=== PATIENT | female | born 1995 | race Caucasian/White ===

== ENCOUNTER 2016-10-14 21:03 | Emergency (ER) | payer OTHER ==
[2016-10-14 21:51] VITALS: BP 121/59
[2016-10-14] MEDS ORDERED: MOTRIN PO ONE (23:54)
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
== END 2016-10-15 00:15 | disposition home or self-care (01) ==
LOC: ED 21:03
DX: S16.1XXA Strain of muscle, fascia and tendon at neck level, initial encounter (principal); J45.909 Unspecified asthma, uncomplicated; Z91.040 Latex allergy status; Z91.011 Allergy to milk products; V49.9XXA Car occupant (driver) (passenger) injured in unspecified traffic accident, initial encounter; Y92.413 State road as the place of occurrence of the external cause; Y93.89 Activity, other specified; Y99.8 Other external cause status
CPT/HCPCS: 99282

== ENCOUNTER 2017-01-02 16:22 | Emergency (ER) | payer SELFPAY ==
[2017-01-02 20:01] LABS: Bilirubin,Urine NEG (Negative); Blood,Urine NEG (Negative); Ketones,Urine NEG (Negative); Leukocyte Esterase,Urine SM (Negative); Mucus,Urine 2+ /HPF; Nitrite,Urine NEG (Negative); Protein,Urine <15 mg/dL mg/dL (Negative); Urobilinogen,Urine < 2.0 mg/dL (<2.0)
--- NOTE | 2017-01-02 21:32 | Emergency Department Report ---
Entered by DEVANG GUSMAN, acting as scribe for RAHUL MONCADA PA. ED Female HPI - General Chief complaint: Urogenital-Female Stated complaint: UTI Time Seen by Provider: 01/02/17 19:38 Source: patient Mode of arrival: Ambulatory Limitations: No Limitations - History of Present Illness Initial comments: 21 y/o female a PMHx of childhood asthma presents to the ED c/o a possible urinary tract infection for 2 days. Patient states she took an OTC urinalysis test that showed positive results for a UTI. Associated left flank pain and dysuria, but she denies abdominal pain, vaginal discharge, vaginal bleeding, fever, chills, nausea, and vomiting. Rates left flank pain a 5/10 in severity which is intermittent in nature, aching, worsened with certain movement. Notes having regular periods. Reports Hx of similar symptoms as a child. LMP 2016. [facility]. [place] Complaint: dysuria Onset/Timin -: days(s) Radiation: non-radiating Severity: moderate (left flank pain) Severity scale (0 -10): 5 (left flank pain) Quality: aching (left flank pain) Consistency: constant Improves with: none Worsens with: none Are you Now?: No Last Menstrual Period: 12/29/16 EDC: 10/05/17 Associated Symptoms: denies other symptoms, dysuria, other (left flank pain). denies: vaginal discharge, vaginal bleeding, abdominal pain, fever/chills, rash , shortness of breath, weakness - Related Data Previous Rx's Medication Instructions Recorded Last Taken Type Acetaminophen/Codeine [Tylenol #3] 1 tab PO Q6H PRN #12 tab 10/15/16 Unknown Rx methOCARBAMOL [Robaxin TAB] 500 mg PO Q6H PRN #15 tablet 10/15/16 Unknown Rx Ibuprofen [Motrin 600 MG tab] 600 mg PO Q8H PRN #30 tablet 01/02/17 Unknown Rx Phenazopyridine [Pyridium] 200 mg PO BID #6 tab 01/02/17 Unknown Rx Allergies Allergy/AdvReac Type Severity Reaction Status Date / Time latex Allergy Rash Verified 10/14/16 21:51 milk Allergy Unknown Verified 10/14/16 21:51 ED Review of Systems Comment: All other systems reviewed and negative Constitutional: no symptoms reported. denies: chills, fever Respiratory: denies: cough, shortness of breath, wheezing Cardiovascular: denies: chest pain, palpitations Endocrine: no symptoms reported Gastrointestinal: denies: abdominal pain, nausea, vomiting, diarrhea Genitourinary: dysuria. denies: urgency, frequency, hematuria, discharge, other (vaginal bleeding) Musculoskeletal: back pain (left flank pain). denies: joint swelling, arthralgia Skin: denies: rash, lesions ED Past Medical Hx - Past Medical History Previous Medical History?: Yes Hx Asthma: Yes (as child) - Surgical History Additional Surgical History: x1 - Social History Smoking Status: Current Every Day Smoker Substance Use Type: Alcohol - Medications Home Medications: Home Medications Medication Instructions Recorded Confirmed Last Taken Type Acetaminophen/Codeine [Tylenol #3] 1 tab PO Q6H PRN #12 tab 10/15/16 Unknown Rx methOCARBAMOL [Robaxin TAB] 500 mg PO Q6H PRN #15 tablet 10/15/16 Unknown Rx Ibuprofen [Motrin 600 MG tab] 600 mg PO Q8H PRN #30 tablet 01/02/17 Unknown Rx Phenazopyridine [Pyridium] 200 mg PO BID #6 tab 01/02/17 Unknown Rx ED Physical Exam - General Limitations: No Limitations General appearance: alert, in no apparent distress - Head Head exam: Present: atraumatic, normocephalic - Eye Eye exam: Present: normal appearance, PERRL, EOMI Pupils: Present: normal accommodation - ENT ENT exam: Present: normal exam, mucous membranes moist - Neck Neck exam: Present: normal inspection, full ROM. Absent: tenderness, lymphadenopathy - Respiratory Respiratory exam: Present: normal lung sounds bilaterally. Absent: respiratory distress, wheezes, rales, rhonchi, stridor - Cardiovascular Cardiovascular Exam: Present: regular rate, normal rhythm, normal heart sounds. Absent: systolic murmur, diastolic murmur, rubs, gallop - GI/Abdominal GI/Abdominal exam: Present: soft, normal bowel sounds. Absent: distended, tenderness, guarding, rebound, rigid - Extremities Exam Extremities exam: Present: normal inspection, full ROM. Absent: calf tenderness - Back Exam Back exam: Present: full ROM, CVA tenderness (L). Absent: CVA tenderness (R), paraspinal tenderness, vertebral tenderness - Neurological Exam Neurological exam: Present: alert, oriented X3, CN II-XII intact - Psychiatric Psychiatric exam: Present: normal affect, normal mood - Skin Skin exam: Present: warm, dry, intact. Absent: rash ED Course Vital Signs 01/02/17 16:38 Temperature 98.5 F Pulse Rate 98 H Respiratory 18 Rate Blood Pressure 135/85 O2 Sat by Pulse 100 Oximetry ED Medical Decision Making - Medical Decision Making 21-year-old female presents with dysuria ED course: UA, UPT ordered. Urinalysis negative. Discussed findings with patient. Discussed with patient for pain Patient is not ill-appearing. Discussed the patient for her pain could be myalgia strained the muscle. Discuss to take Motrin as needed for pain. 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 Discuss her symptoms return or worsen to return to the ED Patient states understanding and will follow instructions. Vital signs stable. Patient is in no acute distress. ED Disposition Clinical Impression: Dysuria Disposition: DC-01 TO HOME OR SELFCARE Is pt being admited?: No Does the pt Need Aspirin: No Condition: Stable Instructions: Dysuria (ED) Prescriptions: Ibuprofen [Motrin 600 MG tab] 600 mg PO Q8H PRN #30 tablet PRN Reason: Pain Phenazopyridine [Pyridium] 200 mg PO BID #6 tab Referrals: PRIMARY CARE,MD [Primary Care Provider] - 3-[address] [facility] [Outside] - 3-5 Days Forms: Accompanied Note, Work/School Release Form(ED) Time of Disposition: 20:29 This documentation as recorded by the UZMA hairston JASMINE,accurately reflects the service I personally performed and the decisions made by ANTWAN stallings OYINLOLA A, PA.
[2017-01-03 01:50] VITALS: BP 124/77
== END 2017-01-02 20:50 | disposition home or self-care (01) ==
LOC: ED 16:22
DX: R30.0 Dysuria (principal); R10.9 Unspecified abdominal pain; J45.909 Unspecified asthma, uncomplicated; F17.200 Nicotine dependence, unspecified, uncomplicated; Z91.040 Latex allergy status; Z91.011 Allergy to milk products
CPT/HCPCS: 81001; 81025; 99283

== ENCOUNTER 2018-03-14 21:40 | Emergency (ER) | payer OTHER ==
[2018-03-14] MEDS ORDERED: NACL 0.9% 1000 ML 1,000 ML IV ONE (22:07)
[2018-03-14 22:30] LABS: Basophils % (Auto) 0.5 % (0.0-1.8); Eosinophils # (Auto) 0.1 K/mm3 (0.0-0.4); Eosinophils % (Auto) 1.6 % (0.0-4.3); Hematocrit 38.4 % (30.3-42.9); Hemoglobin 13.1 gm/dl (10.1-14.3); Lymphocytes # (Auto) 2.6 K/mm3 (1.2-5.4); Lymphocytes % (Auto) 30.2 % (13.4-35.0); Mean Corpuscular HGB Conc 34 % (30-34); Mean Corpuscular Hemoglobin 32 pg (28-32); Mean Corpuscular Volume 92 fl (79-97); Monocytes # (Auto) 0.7 K/mm3 (0.0-0.8); Monocytes % (Auto) 8.2 % (0.0-7.3); Platelet Count 307 K/mm3 (140-440); Red Blood Count 4.15 M/mm3 (3.65-5.03); Red Cell Distribution Width 13.7 % (13.2-15.2)
[2018-03-14 22:40] LABS: Alanine Aminotransferase 13 units/L (7-56); Albumin 4.5 g/dL (3.9-5); BUN/Creatinine Ratio 10; Blood Urea Nitrogen 7 mg/dL (7-17); Calcium 9.7 mg/dL (8.4-10.2); Hemolysis Index 11; Lipase 27 units/L (13-60)
[2018-03-14 23:02] LABS: HCG Qualitative,Urine Positive (Negative)
[2018-03-14 23:08] LABS: Bilirubin,Urine NEG (Negative); Blood,Urine NEG (Negative); Color,Urine Yellow (Yellow); Mucus,Urine FEW /HPF; Protein,Urine <15 mg/dL mg/dL (Negative); Urobilinogen,Urine < 2.0 mg/dL (<2.0)
--- NOTE | 2018-03-15 01:45 | Emergency Department Report ---
HPI - General Chief Complaint: Abdominal Pain Time Seen by Provider: 03/15/18 01:25 - HPI HPI: Room 3 The patient is a 22-year-old female presenting with a chief complaint of right pelvic pain. The patient states for the past 3 days she's had intermittent sharp grabbing pain along the right pelvis and right abdomen. Patient admits to nausea and vomiting as well as subjective fever. The patient states her last cycle occurred 02/02/2018 and being laid is abnormal for her. Patient denies dysuria, hematuria or vaginal bleeding. Location: [See above] Duration: Intermittent 3 days Quality: Sharp/grabbing Severity: Moderate Modifying factors: [see above] Context: [see above] Mode of transportation: [not driving] ED Past Medical Hx - Past Medical History Hx Asthma: Yes (as child) - Surgical History Additional Surgical History: x1 - Family History Family history: no significant - Social History Smoking Status: Never Smoker Substance Use Type: None (denies illicit drug use) - Medications Home Medications: Home Medications Medication Instructions Recorded Confirmed Last Taken Type Acetaminophen/Codeine [Tylenol #3] 1 tab PO Q6H PRN #12 tab 10/15/16 Unknown Rx methOCARBAMOL [Robaxin TAB] 500 mg PO Q6H PRN #15 tablet 10/15/16 Unknown Rx Ibuprofen [Motrin 600 MG tab] 600 mg PO Q8H PRN #30 tablet 01/02/17 Unknown Rx Phenazopyridine [Pyridium] 200 mg PO BID #6 tab 01/02/17 Unknown Rx Ibuprofen [Motrin 600 MG tab] 600 mg PO Q8H PRN #20 tablet 03/15/18 Unknown Rx ED Review of Systems ROS: Stated complaint: LT FLANK PAIN; FEVER; N/V Other details as noted in HPI Constitutional: fever (subjective) Eyes: denies: eye pain ENT: denies: throat pain Respiratory: no symptoms reported Cardiovascular: denies: chest pain Endocrine: no symptoms reported Gastrointestinal: nausea, vomiting Genitourinary: abnormal menses, other (right pelvic pain). denies: dysuria, hematuria Musculoskeletal: denies: back pain Neurological: denies: headache Physical Exam - Physical Exam Vital Signs: Vital Signs 03/14/18 03/15/18 03/15/18 22:03 00:58 00:59 Temperature 98.3 F Pulse Rate 75 86 Respiratory 18 16 16 Rate Blood Pressure 148/76 Blood Pressure 107/59 [Left] O2 Sat by Pulse 100 Oximetry Physical Exam: GENERAL: The patient is well-developed well-nourished female lying O she could not appear to be in acute distress. [] HEENT: Normocephalic. Atraumatic. Extraocular motions are intact. Patient has moist mucous membranes. NECK: Supple. Trachea midline CHEST/LUNGS: Clear to auscultation. There is no respiratory distress noted. HEART/CARDIOVASCULAR: Regular. There is no tachycardia. There is no gallop rub or murmur. ABDOMEN: Abdomen is soft, with mild discomfort to palpation along the right inguinal region. Patient has normal bowel sounds. There is no abdominal distention. SKIN: There is no rash. There is no edema. There is no diaphoresis. NEURO: The patient is awake, alert, and oriented. The patient is cooperative. The patient has normal speech MUSCULOSKELETAL: There is no CVA tenderness. There is no evidence of acute injury. ED Course Vital Signs 03/14/18 03/15/18 03/15/18 22:03 00:58 00:59 Temperature 98.3 F Pulse Rate 75 86 Respiratory 18 16 16 Rate Blood Pressure 148/76 Blood Pressure 107/59 [Left] O2 Sat by Pulse 100 Oximetry ED Medical Decision Making - Lab Data Result diagrams: 03/14/18 22:12 03/14/18 22:12 - Radiology Data Radiology results: report reviewed (pelvic ultrasound, right renal ultrasound), image reviewed (pelvic ultrasound, right renal ultrasound) [facility] [address] [place] [address] Ultrasound Report Signed Patient: CHILANGO MILNER MR#: [id number] : 1995 Acct:[id number] Age/Sex: 22 / F ADM Date: 03/14/18 Loc: ED Attending Dr: Ordering Physician: GAYATRI ASHER MD Date of Service: 03/15/18 Procedure(s): US OB transvaginal Accession Number(s): [id number] cc: GAYATRI ASHER MD FINAL REPORT EXAM: US OB TRANSVAGINAL HISTORY: right pelvic pain TECHNIQUE: Real-time sonography was performed of the gravid uterus transabdominally and endovaginally and images are submitted for interpretation. PRIORS: None. FINDINGS: The uterus appears normal and has a grossly normal appearing gestational sac. There is a small subchorionic bleed. There is a normal appearing pole measuring 0.66 centimeters for an estimated gestational age of 6 weeks 4 days. A normal-appearing yolk sac is identified. The heart is beating at a rate of 129 beats per minute. Both ovaries are visualized and appear normal. The right ovary measures 3.1 x 2.1 x 2.3 cm and the left measures 2.3 x 1.5 x 1.4 cm. IMPRESSION: Single live intrauterine gestation, estimated gestational age 6 weeks 4 days for an estimated confinement of 2018. Small subchorionic bleed. Transcribed By: KIMBERLY Dictated By: DEWEY CAMPOS MD Electronically Authenticated By: DEWEY CAMPOS MD Signed Date/Time: 337 DD/ 7 TD/TT: 03/15/18337 [facility] [address] [place] [address] Ultrasound Report Signed Patient: CHILANGO MILNER MR#: [id number] : 1995 Acct:[id number] Age/Sex: 22 / F ADM Date: 03/14/18 Loc: ED Attending Dr: Ordering Physician: GAYATRI ASHER MD Date of Service: 03/15/18 Procedure(s): US renal RT Accession Number(s): [id number] cc: GAYATRI ASHER MD FINAL REPORT EXAM: US RENAL RT HISTORY: right flank pain TECHNIQUE: Real-time sonography was performed of the right kidney and images are submitted for interpretation. PRIORS: None. FINDINGS: The right kidney appears normal in size , shape and echogenicity measuring 10.9 x 3.2 x 5.9 cm. There is no hydronephrosis. There are no focal renal lesions. IMPRESSION: Normal right renal ultrasound Transcribed By: KIMBERLY Dictated By: DEWEY CAMPOS MD Electronically Authenticated By: DEWEY CAMPOS MD Signed Date/Time: 03/15/18328 DD/ 8 TD/TT: 03/15/18328 - Differential Diagnosis ectopic , UTI, renal colic Critical care attestation.: If time is entered above; I have spent that time in minutes in the direct care of this critically ill patient, excluding procedure time. ED Disposition Clinical Impression: , Abdominal pain Disposition: - TO HOME OR SELFCARE Is pt being admited?: No Does the pt Need Aspirin: No Condition: Stable Instructions: Abdominal Pain (ED) Additional Instructions: Return to the emergency department immediately should you develop worsening symptoms, fever, inability to tolerate food or liquid or any other concerns. Prescriptions: Ibuprofen [Motrin 600 MG tab] 600 mg PO Q8H PRN #20 tablet PRN Reason: Pain Referrals: PRIMARY CARE, [Primary Care Provider] - 3-5 Days ARMEN RIOJAS MD [Staff Physician] - 3-5 Days (Dr. Riojas is an [employer]. Please follow up with her for further evaluation) Time of Disposition: 04:25
--- NOTE | 2018-03-15 03:29 | Ultrasound Report ---
FINAL REPORT EXAM: US RENAL RT HISTORY: right flank pain TECHNIQUE: Real-time sonography was performed of the right kidney and images are submitted for interpretation. PRIORS: None. FINDINGS: The right kidney appears normal in size, shape and echogenicity measuring 10.9 x 3.2 x 5.9 cm. There is no hydronephrosis. There are no focal renal lesions. IMPRESSION: Normal right renal ultrasound
--- NOTE | 2018-03-15 03:36 | Ultrasound Report ---
FINAL REPORT EXAM: US OB < = 14 WEEKS FETUS HISTORY: right pelvic pain TECHNIQUE: Real-time sonography was performed of the gravid uterus transabdominally and endovaginally and images are submitted for interpretation. PRIORS: None. FINDINGS: The uterus appears normal and has a grossly normal appearing gestational sac. There is a normal appearing pole measuring 0.66 centimeters for an estimated gestational age of 6 weeks 4 days. A normal-appearing yolk sac is identified. The heart is beating at a rate of 129 beats per minute. Both ovaries are visualized and appear normal. The right ovary measures 3.1 x 2.1 x 2.3 cm and the left measures 2 is.3 x 1.5 x 1.4 cm. IMPRESSION: Single live intrauterine gestation, estimated gestational age 6 weeks 4 days for an estimated confinement of 11/03/2018.
--- NOTE | 2018-03-15 03:40 | Ultrasound Report ---
FINAL REPORT EXAM: US OB TRANSVAGINAL HISTORY: right pelvic pain TECHNIQUE: Real-time sonography was performed of the gravid uterus transabdominally and endovaginally and images are submitted for interpretation. PRIORS: None. FINDINGS: The uterus appears normal and has a grossly normal appearing gestational sac. There is a small subchorionic bleed. There is a normal appearing pole measuring 0.66 centimeters for an estimated gestational age of 6 weeks 4 days. A normal-appearing yolk sac is identified. The heart is beating at a rate of 129 beats per minute. Both ovaries are visualized and appear normal. The right ovary measures 3.1 x 2.1 x 2.3 cm and the left measures 2.3 x 1.5 x 1.4 cm. IMPRESSION: Single live intrauterine gestation, estimated gestational age 6 weeks 4 days for an estimated confinement of 11/03/2018. Small subchorionic bleed.
[2018-03-15 05:42] VITALS: BP 98/49
== END 2018-03-15 05:25 | disposition home or self-care (01) ==
LOC: ED 21:40
DX: O26.891 Other specified pregnancy related conditions, first trimester (principal); R10.2 Pelvic and perineal pain; O21.9 Vomiting of pregnancy, unspecified; O99.511 Diseases of the respiratory system complicating pregnancy, first trimester; J45.909 Unspecified asthma, uncomplicated; Z3A.01 Less than 8 weeks gestation of pregnancy; Z91.040 Latex allergy status; Z91.011 Allergy to milk products
CPT/HCPCS: 36415; 76775; 76801; 76817; 80053; 81001; 81025; 83690; 84702; 85025; 99284

== ENCOUNTER 2018-03-15 16:58 | Emergency (ER) | payer SELFPAY ==
[2018-03-15 18:18] LABS: Bilirubin,Urine NEG (Negative); Blood,Urine NEG (Negative); Color,Urine Yellow (Yellow); Mucus,Urine 3+ /HPF
[2018-03-15 18:54] LABS: Basophils % (Auto) 0.6 % (0.0-1.8); Eosinophils # (Auto) 0.1 K/mm3 (0.0-0.4); Eosinophils % (Auto) 1.2 % (0.0-4.3); Hematocrit 37.1 % (30.3-42.9); Lymphocytes # (Auto) 2.5 K/mm3 (1.2-5.4); Lymphocytes % (Auto) 32.5 % (13.4-35.0); Mean Corpuscular HGB Conc 35 % (30-34); Mean Corpuscular Hemoglobin 32 pg (28-32); Mean Corpuscular Volume 91 fl (79-97); Monocytes # (Auto) 0.6 K/mm3 (0.0-0.8); Monocytes % (Auto) 8.1 % (0.0-7.3); Platelet Count 310 K/mm3 (140-440); Red Blood Count 4.07 M/mm3 (3.65-5.03); Red Cell Distribution Width 13.8 % (13.2-15.2)
[2018-03-15 19:17] LABS: Alanine Aminotransferase 11 units/L (7-56); Albumin 4.4 g/dL (3.9-5); BUN/Creatinine Ratio 17; Blood Urea Nitrogen 10 mg/dL (7-17); Calcium 9.4 mg/dL (8.4-10.2); Hemolysis Index 0
[2018-03-15] MEDS ORDERED: ZOFRAN IV ONE (22:42)
[2018-03-15] MEDS ORDERED: D5NS 1,000 ML IV SCH (23:00)
--- NOTE | 2018-03-15 23:45 | Emergency Department Report ---
ED Female HPI - General Chief complaint: Abdominal Pain Stated complaint: FEVER Time Seen by Provider: 03/15/18 22:34 Source: patient, old records reviewed Mode of arrival: Ambulatory Limitations: No Limitations - History of Present Illness Initial comments: 22-year-old female with a past medical history of asthma as a child presents to the hospital complaining of abdominal pain and fever 3 days. Patient was seen here yesterday with symptoms diagnosed with . Patient states that she has had the pubic, right mid abdominal pain, having epigastric pain for the last 3 days with a fever of 102 at home. Yesterday patient had a right renal ultrasound is normal and a transvaginal ultrasound 6 week 4 day IUP with small subchorionic hemorrhage. Patient was discharged with prescriptions for Reglan and lotion but she states she could not afford the medication. Patient reports continued and vomiting with decreased by mouth tolerance with nausea. Patient denies diarrhea, vaginal bleeding, international travel, sick contacts, or dysuria. Vaginal discharge reported. This is her second and she has one living child and no history of miscarriages or abortions. She states she is Rh- - Related Data Previous Rx's Medication Instructions Recorded Last Taken Type Metoclopramide [Reglan] 10 mg PO TID PRN #20 tab 03/15/18 Unknown Rx Ondansetron [Zofran Odt] 4 mg PO Q8HR PRN #20 tab.rapdis 03/16/18 Unknown Rx Allergies Allergy/AdvReac Type Severity Reaction Status Date / Time latex Allergy Rash Verified 10/14/16 21:51 milk Allergy Unknown Verified 10/14/16 21:51 ED Review of Systems ROS: Stated complaint: FEVER Other details as noted in HPI Comment: All other systems reviewed and negative ED Past Medical Hx - Past Medical History Hx Asthma: Yes (as child) - Surgical History Past Surgical History?: Yes Additional Surgical History: x1 - Social History Smoking Status: Never Smoker Substance Use Type: None - Medications Home Medications: Home Medications Medication Instructions Recorded Confirmed Last Taken Type Metoclopramide [Reglan] 10 mg PO TID PRN #20 tab 03/15/18 Unknown Rx Ondansetron [Zofran Odt] 4 mg PO Q8HR PRN #20 tab.rapdis 03/16/18 Unknown Rx ED Physical Exam - General Limitations: No Limitations - Other Other exam information: General: No limitations, patient is alert in no acute distress Head exam: Atraumatic, normocephalic Eyes exam: Normal appearance ENT: Moist mucous membrane, normal oropharynx Neck exam: Normal inspection, full range of motion, no meningismus nontender Respiratory exam: Clear to auscultation bilateral, no wheezes, rales, crackles Cardiovascular: Normal rate and rhythm, normal heart sounds Abdomen: Soft, nondistended, suprapubic tenderness, with normal bowel sounds, no rebound, or guarding : White vaginal discharge, no CMT. Mild left adnexal tenderness Extremity: Full range of motion normal inspection no deformity Back: Normal Inspection, full range of motion, no tenderness no CVA tenderness Neurologic: Alert, oriented x3, cranial nerves intact, no motor or sensory deficit Psychiatric: normal affect, normal mood Skin: Warm, dry, intact ED Course Vital Signs 03/15/18 03/15/18 17:11 23:13 Temperature 98.7 F 98.6 F Pulse Rate 61 58 L Respiratory 18 16 Rate Blood Pressure 138/79 Blood Pressure 110/62 [Right] O2 Sat by Pulse 99 100 Oximetry ED Medical Decision Making - Lab Data Result diagrams: 03/15/18 18:31 03/15/18 18:31 Lab Results 03/15/18 03/15/18 03/15/18 Range/Units 17:24 18:31 18:31 WBC 7.8 (4.5-11.0) K/mm3 RBC 4.07 (3.65-5.03) M/mm3 Hgb 13.0 (10.1-14.3) gm/dl Hct 37.1 (30.3-42.9) % MCV 91 (79-97) fl MCH 32 (28-32) pg MCHC 35 H (30-34) % RDW 13.8 (13.2-15.2) % Plt Count 310 (140-440) K/mm3 Lymph % (Auto) 32.5 (13.4-35.0) % [place] % (Auto) 8.1 H (0.0-7.3) % Eos % (Auto) 1.2 (0.0-4.3) % Baso % (Auto) 0.6 (0.0-1.8) % Lymph # 2.5 (1.2-5.4) K/mm3 [place] # 0.6 (0.0-0.8) K/mm3 Eos # 0.1 (0.0-0.4) K/mm3 Baso # 0.0 (0.0-0.1) K/mm3 Seg Neutrophils % 57.6 (40.0-70.0) % Seg Neutrophils # 4.5 (1.8-7.7) K/mm3 Sodium 136 L (137-145) mmol/L Potassium 3.7 (3.6-5.0) mmol/L Chloride 98.6 (98-107) mmol/L Carbon Dioxide 22 (22-30) mmol/L Anion Gap 19 mmol/L BUN 10 (7-17) mg/dL Creatinine 0.6 L (0.7-1.2) mg/dL Estimated GFR > 60 ml/min BUN/Creatinine Ratio 17 % Glucose 101 H (65-100) mg/dL Calcium 9.4 (8.4-10.2) mg/dL Total Bilirubin 0.50 (0.1-1.2) mg/dL AST 14 (5-40) units/L ALT 11 (7-56) units/L Alkaline Phosphatase 45 (35-129) units/L Total Protein 7.2 (6.3-8.2) g/dL Albumin 4.4 (3.9-5) g/dL Albumin/Globulin Ratio 1.6 % Urine Color Yellow (Yellow) Urine Turbidity Slightly-cloudy (Clear) Urine pH 5.0 (5.0-7.0) Ur Specific [place] 1.028 (1.003-1.030) Urine Protein 30 mg/dl (Negative) mg/dL Urine Glucose (UA) Neg (Negative) mg/dL Urine Ketones 80 (Negative) mg/dL Urine Blood Neg (Negative) Urine Nitrite Neg (Negative) Urine Bilirubin Neg (Negative) Urine Urobilinogen 2.0 (<2.0) mg/dL Ur Leukocyte Esterase Neg (Negative) Urine WBC (Auto) 4.0 (0.0-6.0) /HPF Urine RBC (Auto) 4.0 (0.0-6.0) /HPF U Epithel Cells (Auto) 9.0 (0-13.0) /HPF Urine Mucus 3+ /HPF Blood Type Antibody Screen 03/15/18 Range/Units 23:52 WBC (4.5-11.0) K/mm3 RBC (3.65-5.03) M/mm3 Hgb (10.1-14.3) gm/dl Hct (30.3-42.9) % MCV (79-97) fl MCH (28-32) pg MCHC (30-34) % RDW (13.2-15.2) % Plt Count (140-440) K/mm3 Lymph % (Auto) (13.4-35.0) % [place] % (Auto) (0.0-7.3) % Eos % (Auto) (0.0-4.3) % Baso % (Auto) (0.0-1.8) % Lymph # (1.2-5.4) K/mm3 [place] # (0.0-0.8) K/mm3 Eos # (0.0-0.4) K/mm3 Baso # (0.0-0.1) K/mm3 Seg Neutrophils % (40.0-70.0) % Seg Neutrophils # (1.8-7.7) K/mm3 Sodium (137-145) mmol/L Potassium (3.6-5.0) mmol/L Chloride (98-107) mmol/L Carbon Dioxide (22-30) mmol/L Anion Gap mmol/L BUN (7-17) mg/dL Creatinine (0.7-1.2) mg/dL Estimated GFR ml/min BUN/Creatinine Ratio % Glucose (65-100) mg/dL Calcium (8.4-10.2) mg/dL Total Bilirubin (0.1-1.2) mg/dL AST (5-40) units/L ALT (7-56) units/L Alkaline Phosphatase (35-129) units/L Total Protein (6.3-8.2) g/dL Albumin (3.9-5) g/dL Albumin/Globulin Ratio % Urine Color (Yellow) Urine Turbidity (Clear) Urine pH (5.0-7.0) Ur Specific [place] (1.003-1.030) Urine Protein (Negative) mg/dL Urine Glucose (UA) (Negative) mg/dL Urine Ketones (Negative) mg/dL Urine Blood (Negative) Urine Nitrite (Negative) Urine Bilirubin (Negative) Urine Urobilinogen (<2.0) mg/dL Ur Leukocyte Esterase (Negative) Urine WBC (Auto) (0.0-6.0) /HPF Urine RBC (Auto) (0.0-6.0) /HPF U Epithel Cells (Auto) (0-13.0) /HPF Urine Mucus /HPF Blood Type O NEGATIVE Antibody Screen Negative - Medical Decision Making pelvic pain no consistent pain over the appendix, normal wbc count, normal temperature and no signs of infection. UA negative and patient had a right renal ultrasound if that was negative Positive IUP with subchorionic hemorrhage. Patient is Rh- and therefore RhoGAM provided Vaginal discharge secondary to BV. Flagyl given in the ED and will be continued and will be prescribed Zofran will be prescribed when necessary nausea. Patient instructed not to take motion but instead take Tylenol as needed for pain n/v in with urine ketones due to dehydration, improved after Zofran and patient received 1 L D5 NS and is tolerating PO intake Follow-up with MEDICAL OFFICE SPECIALIST will be encouraged - Differential Diagnosis appendicitis, UTI, cystitis, vaginitis, renal colic Critical Care Time: No Critical care attestation.: If time is entered above; I have spent that time in minutes in the direct care of this critically ill patient, excluding procedure time. ED Disposition Clinical Impression: BV (bacterial vaginosis), Pelvic pain, 6 weeks gestation of , Subchorionic hematoma in first trimester, Nausea and vomiting during Disposition: TO HOME OR SELFCARE Is pt being admited?: No Does the pt Need Aspirin: No Condition: Stable Instructions: Bacterial Vaginosis (ED), Abdominal Pain (ED), (ED), Hyperemesis Gravidarum (ED) Additional Instructions: Take the medication as prescribed. Follow up with your doctor or the doctor/ clinic provided. Return if symptoms worsen as indicated by your discharge instructions. Take Tylenol as needed for pain and do not take Motrin during her . 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
[2018-03-16] MEDS ORDERED: FLAGYL PO ONE (00:06)
[2018-03-16 03:39] VITALS: BP 101/57
== END 2018-03-16 04:25 | disposition home or self-care (01) ==
LOC: ED 16:58
DX: O23.591 Infection of other part of genital tract in pregnancy, first trimester (principal); B96.89 Other specified bacterial agents as the cause of diseases classified elsewhere; O20.8 Other hemorrhage in early pregnancy; O21.9 Vomiting of pregnancy, unspecified; O99.511 Diseases of the respiratory system complicating pregnancy, first trimester; J45.909 Unspecified asthma, uncomplicated; Z91.040 Latex allergy status; Z91.011 Allergy to milk products; Z3A.01 Less than 8 weeks gestation of pregnancy
CPT/HCPCS: 36415; 80053; 81001; 85025; 86850; 86900; 86901; 87210; 87591; 96361; 96374; 99284; J2405; J2790; J7042

== ENCOUNTER 2021-03-23 13:34 | Emergency (ER) | payer SELFPAY ==
[2021-03-23 13:56] VITALS: BP 149/97
--- NOTE | 2021-03-23 14:13 | Emergency Department Report ---
ED Female HPI - General Chief complaint: Vaginal Bleeding Stated complaint: HEAVY PERIOD,CLOTS,LO BACK PAIN PELVIC Time Seen by Provider: 03/23/21 14:03 Source: patient Mode of arrival: Ambulatory Limitations: No Limitations - History of Present Illness Initial comments: Patient is a 25-year-old female presents emergency room complaints of vaginal bl eeding that began 4 days ago. She states that this is the normal time for her menstrual cycle. she states that the bleeding has been heavier and she has been passing clots. She states that she is changing her pad approximately every hour. She states that she has lower abdominal cramping and lower back pain. Patient states that she recently had Nexplanon removed from her arm approximately 2 to 3 months ago. She denies any fever, nausea, vomiting, diarrhea, urinary symptoms, abnormal vaginal discharge. No past medical history. Allergy to latex, milk, Benadryl. - Related Data Previous Rx's Medication Instructions Recorded Last Taken Type Metoclopramide [Reglan] 10 mg PO TID PRN #20 tab 03/15/18 Unknown Rx Ondansetron [Zofran Odt] 4 mg PO Q8HR PRN #20 tab.rapdis 03/16/18 Unknown Rx metroNIDAZOLE [Flagyl] 500 mg PO Q12HR #14 tab 03/16/18 Unknown Rx Naproxen 375 mg PO BID PRN #14 tablet 03/23/21 Unknown Rx medroxyPROGESTERone ACETATE 10 mg PO QDAY 10 Days #10 tablet 03/23/21 Unknown Rx [Provera] Allergies Allergy/AdvReac Type Severity Reaction Status Date / Time latex Allergy Rash Verified 03/23/21 13:52 milk Allergy Unknown Verified 03/23/21 13:52 ED Review of Systems ROS: Stated complaint: HEAVY PERIOD,CLOTS,LO BACK PAIN PELVIC Other details as noted in HPI Comment: All other systems reviewed and negative ED Past Medical Hx - Past Medical History Hx Asthma: Yes (as child) - Surgical History Additional Surgical History: x1 - Social History Smoking Status: Never Smoker Substance Use Type: None - Medications Home Medications: Home Medications Medication Instructions Recorded Confirmed Last Taken Type Metoclopramide [Reglan] 10 mg PO TID PRN #20 tab 03/15/18 Unknown Rx Ondansetron [Zofran Odt] 4 mg PO Q8HR PRN #20 tab.rapdis 03/16/18 Unknown Rx metroNIDAZOLE [Flagyl] 500 mg PO Q12HR #14 tab 03/16/18 Unknown Rx Naproxen 375 mg PO BID PRN #14 tablet 03/23/21 Unknown Rx medroxyPROGESTERone ACETATE 10 mg PO QDAY 10 Days #10 tablet 03/23/21 Unknown Rx [Provera] ED Physical Exam - General Limitations: No Limitations General appearance: alert, in no apparent distress - Head Head exam: Present: atraumatic, normocephalic - Eye Eye exam: Present: normal appearance - ENT ENT exam: Present: mucous membranes moist - Respiratory Respiratory exam: Present: normal lung sounds bilaterally. Absent: respiratory distress, wheezes, rales, rhonchi, stridor, chest wall tenderness, accessory muscle use, decreased breath sounds, prolonged expiratory - Cardiovascular Cardiovascular Exam: Present: regular rate, normal rhythm, normal heart sounds. Absent: systolic murmur, diastolic murmur, rubs, gallop - GI/Abdominal GI/Abdominal exam: Present: soft, tenderness (suprapubic ), normal bowel sounds. Absent: distended, guarding, rebound, rigid - Back Exam Back exam: Absent: CVA tenderness (R), CVA tenderness (L) - Neurological Exam Neurological exam: Present: alert, oriented X3 - Psychiatric Psychiatric exam: Present: normal affect, normal mood - Skin Skin exam: Present: warm, dry, intact ED Course Vital Signs 03/23/21 13:54 Temperature 98.5 F Pulse Rate 62 Respiratory 16 Rate Blood Pressure 149/97 O2 Sat by Pulse 100 Oximetry ED Medical Decision Making - Lab Data Result diagrams: 03/23/21 14:34 - Medical Decision Making Patient is a 25-year-old female presents emergency room complaints of vaginal bleeding that began 4 days ago. She states that this is the normal time for her menstrual cycle. she states that the bleeding has been heavier and she has been passing clots. She states that she is changing her pad approximately every hour. She states that she has lower abdominal cramping and lower back pain. Patient states that she recently had Nexplanon removed from her arm approximately 2 to 3 months ago. She denies any fever, nausea, vomiting, diarrhea, urinary symptoms, abnormal vaginal discharge. No past medical history. Allergy to latex, milk, Benadryl. Vitals are stable. On exam patient has suprapubic tenderness palpation, no guarding, no rebound, no rigidity, normal bowel sounds, no peritoneal signs. H&H is normal. hCG is negative. UA without evidence of significant UTI. Patient is presenting with menorrhagia. Patient given prescription for naproxen and Provera. Discussed the importance of outpatient EMERGENCY DEPARTMENT follow-up. Advised patient Please take medication as presc ribed. Increase your fluid intake. Follow-up with a EMERGENCY DEPARTMENT. Return to emergency room for any new or worsening symptoms. Critical care attestation.: If time is entered above; I have spent that time in minutes in the direct care of this critically ill patient, excluding procedure time. ED Disposition Clinical Impression: Suprapubic pain Menorrhagia Qualifiers: Menorrhagia type: with regular cycle Qualified Code(s): N92.0 - Excessive and frequent menstruation with regular cycle Disposition: 01 HOME / SELF CARE / HOMELESS Is pt being admited?: No Does the pt Need Aspirin: No Condition: Stable Instructions: Menorrhagia, [id number] Additional Instructions: Please take medication as prescribed. Increase your fluid intake. Follow-up with a EMERGENCY DEPARTMENT. Return to emergency room for any new or worsening symptoms. Prescriptions: Naproxen 375 mg PO BID PRN #14 tablet PRN Reason: pain medroxyPROGESTERone ACETATE [Provera] 10 mg PO QDAY 10 Days #10 tablet Referrals: PRIMARY CARE, [Primary Care Provider] - 3-5 Days [facility] [Provider Group] - 3-5 Days [facility] [Provider Group] - 3-5 Days Time of Disposition: 15:06 Print Language: [place]APORE[place]
[2021-03-23 14:54] LABS: Basophils % (Auto) 0.6 % (0.0-1.8); Eosinophils # (Auto) 0.3 K/mm3 (0.0-0.4); Eosinophils % (Auto) 4.4 % (0.0-4.3); Hematocrit 38.3 % (30.3-42.9); Hemoglobin 13.2 gm/dl (10.1-14.3); Lymphocytes # (Auto) 2.8 K/mm3 (1.2-5.4); Lymphocytes % (Auto) 45.2 % (13.4-35.0); Mean Corpuscular HGB Conc 35 % (30-34); Mean Corpuscular Volume 94 fl (79-97); Monocytes # (Auto) 0.6 K/mm3 (0.0-0.8); Monocytes % (Auto) 8.8 % (0.0-7.3); Platelet Count 276 K/mm3 (140-440); Red Blood Count 4.07 M/mm3 (3.65-5.03); Red Cell Distribution Width 14.8 % (13.2-15.2)
[2021-03-23 14:56] LABS: Bacteria,Urine 1+ /HPF (Negative); Bilirubin,Urine NEG (Negative); Blood,Urine LG (Negative); Color,Urine Yellow (Yellow); Mucus,Urine 3+ /HPF; Urobilinogen,Urine < 2.0 mg/dL (<2.0)
[2021-03-23 15:00] LABS: WBC,Urine < 1.0 /HPF (0.0-6.0)
== END 2021-03-23 15:15 | disposition home or self-care (01) ==
LOC: ED 13:34
DX: N92.0 Excessive and frequent menstruation with regular cycle (principal); R10.2 Pelvic and perineal pain; J45.909 Unspecified asthma, uncomplicated; Z79.899 Other long term (current) drug therapy; Z91.011 Allergy to milk products; Z91.040 Latex allergy status; Z98.890 Other specified postprocedural states
CPT/HCPCS: 36415; 81001; 84703; 85025

== ENCOUNTER 2021-05-10 13:32 | Emergency (ER) | payer OTHER ==
[2021-05-10 13:42] VITALS: BP 111/60
[2021-05-10] MEDS ORDERED: LIDOCAINE-MPF (1%) 10 MG/1 ML VIAL 5 ML INFILTRATI ONE (14:34)
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
== END 2021-05-10 17:07 | disposition home or self-care (01) ==
LOC: ED 13:32
DX: S16.1XXA Strain of muscle, fascia and tendon at neck level, initial encounter (principal); S43.402A Unspecified sprain of left shoulder joint, initial encounter; V49.49XA Driver injured in collision with other motor vehicles in traffic accident, initial encounter; Y93.89 Activity, other specified; Y92.488 Other paved roadways as the place of occurrence of the external cause; Y99.8 Other external cause status
CPT/HCPCS: 72125; 73030; 96372; 99283; J0696